=== PATIENT | female | born 1960 | race Caucasian/White ===

== ENCOUNTER 2016-07-20 11:33 | Emergency (ER) | payer MEDICAID ==
[~2016-07-20] VITALS: Wt 83.0 kg
[2016-07-20] MEDS ORDERED: KETOROLAC 30 MG INJ IM STA (12:59)
[2016-07-20] MEDS ORDERED: HYDROCODONE/APAP (5/325) TAB PO ONE (13:00)
--- NOTE | 2016-07-20 13:37 | RADRPT ---
PROCEDURE: XR Chest. CLINICAL INDICATION: chest pain TECHNIQUE: Single frontal view of the chest was obtained COMPARISON: None FINDINGS: The heart and mediastinum are within normal limits. The lungs are clear. There is no pleural effusion or pneumothorax. RPTAT: AA IMPRESSION: No acute disease. .Curry Morel MD, Date Time Electronically viewed and signed by .Curry Morel MD, on 07/20/2016 13:37 .S/
[2016-07-20] MEDS ORDERED: IBUP-1542 PO (14:12)
[2016-07-20] MEDS ORDERED: HYDR-906 PO (14:12)
--- NOTE | 2016-07-20 14:53 | RADRPT ---
PROCEDURE: Shoulder x-ray CLINICAL INDICATION: Pain TECHNIQUE: Left shoulder 3 views COMPARISON: None FINDINGS: 3 views of the left shoulder demonstrate no displaced fracture. The humeral head articulates anatom ically with the glenoid fossa. The acromioclavicular articulation is within normal limits. Bones a re normally mineralized. Soft tissues are unremarkable. IMPRESSION: No acute fracture dislocation No significant degenerate change RPTAT: HH .Dank Caballero MD, Date Time Electronically viewed and signed by .Dank Caballero MD, on 07/20/2016 14:53 .W/
[2016-07-20] MEDS ORDERED: ONDANSETRON 4 MG TAB PO ONE (15:00)
[2016-07-20] MEDS ORDERED: ONDA4TAB14 PO (15:16)
[2016-07-20 15:20] VITALS: RESP 18
--- NOTE | 2016-07-20 15:34 | ERD ---
ER Documentation Chief Complaint Date/Time DATE: 07/20/16 TIME: 15:18 Chief Complaint LEFT ARM PAIN X1 DAY, NO CP, NO SOB HPI Patient is a 54-year-old female with a history of diabetes complaining of left shoulder pain radiating to the left upper arm 1 day. Patient denies any trauma. Left shoulder pain appeared upon waking up yesterday morning. Denies paresthesia on the left upper extremity. Patient complains of decreased range of motion in the left shoulder. denies any chest pain, shortness of breath, nausea, fever. ROS All systems reviewed and are negative except as per history of present illness. Medications Home Meds Active Scripts Ondansetron (Ondansetron Odt) 4 Mg Tab.rapdis, 4 MG PO Q6H Y for NAUSEA AND/OR VOMITING, #20 TAB Prov:TRINA CHARLES 07/20/16 Hydrocodone/Acetaminophen (Tyro 5-325 Tablet) 1 Each Tablet, 1 TAB PO Q6H Y for PAIN, #7 TAB Prov:TRINA CHARLES 07/20/16 Ibuprofen* (Motrin*) 600 Mg Tab, 600 MG PO Q6H Y for PAIN AND OR ELEVATED TEMP, #30 TAB Prov:TRINA CHARLES 07/20/16 Allergies Allergies: Coded Allergies: No Known Allergy (Unverified , 07/20/16) PMhx/Soc History of Surgery: Yes (gallbladder; appendix; ) Anesthesia Reaction: No Hx Neurological Disorder: No Hx Respiratory Disorders: No Hx Cardiac Disorders: No Hx Psychiatric Problems: No Hx Miscellaneous Medical Probl: Yes (dm) Hx Alcohol Use: No Hx Substance Use: No Hx Tobacco Use: No Smoking Status: Never smoker Physical Exam Vitals Vital Signs Date Time Temp Pulse Resp B/P Pulse Ox O2 Delivery O2 Flow Rate FiO2 07/20/16 11:38 97.4 80 17 133/64 98 Physical Exam Physical Exam CONST: Well-developed, well-nourished, in no acute distress. HEENT: Atraumatic. Normal Conjunctiva. EOM intact. TM intact. External ear is normal. Clear oropharnyx without erythema. Moist mucous membranes. Supple. Full range of motion. No meningismus. No submandibular induration. RESP: Clear to auscultation bilaterally. No wheezing. CARDIO: Regular rate and rhythm, no murmurs ABD: Soft, non tender, non distended. Normal bowel sounds. No McBurney' s point tenderness. No guarding or rigidity. No peritoneal signs. SKIN: No petechiae or rashes BACK: No midline or flank tenderness EXT: Decreased range of motion on the left shoulder due to pain. No cyanosis or edema. Distal pulses equal and bilateral NEURO: Awake and alert, appropriate for age Results 24 hrs Current Medications Medications (Trade) Dose Ordered Sig/Cedrick Route PRN Reason Start Time Stop Time Status Last Admin Dose Admin Acetaminophen/ Hydrocodone Bitart (Tyro (5/325)) 1 tab ONCE ONCE PO 07/20/16 13:00 07/20/16 13:05 DC 07/20/16 13:38 Ketorolac Tromethamine (Toradol) 30 mg ONCE STAT IM 07/20/16 12:59 07/20/16 13:05 DC 07/20/16 13:38 Ondansetron HCl (Zofran Tab) 8 mg ONCE ONCE PO 07/20/16 15:00 07/20/16 15:01 DC PROCEDURE: Shoulder x-ray CLINICAL INDICATION: Pain TECHNIQUE: Left shoulder 3 views COMPARISON: None FINDINGS: 3 views of the left shoulder demonstrate no displaced fracture. The humeral head articulates anatomically with the glenoid fossa. The acromioclavicular articulation is within normal limits. Bones are normally mineralized. Soft tissues are unremarkable. IMPRESSION: No acute fracture dislocation No significant degenerate change RPTAT: HH .Dank Caballero MD, MD Date Time Electronically viewed and signed by .Dank Caballero MD, MD on 07/20/2016 14:53 PROCEDURE: XR Chest. CLINICAL INDICATION: chest pain TECHNIQUE: Single frontal view of the chest was obtained COMPARISON: None FINDINGS: The heart and mediastinum are within normal limits. The lungs are clear. There is no pleural effusion or pneumothorax. RPTAT: AA IMPRESSION: No acute disease. .Curry Morel MD, Date Time Electronically viewed and signed by .Curry Morel MD, MD on 07/20/2016 13: 37 Procedures/MDM EMERGENCY DEPARTMENT COURSE/MEDICAL DECISION MAKING This is a 55-year-old female who comes to the emergency room secondary to complaints of left shoulder and left upper arm pain. Patient denies any chest pain, palpitation, shortness of breath, nausea, fever. Vital signs are stable. The patient was given Toradol IM and Tyro p.o. in the department. Patient developed nausea afterwards so Zofran p.o. was given. On re-evaluation, the patient was feeling improved. Left shoulder x-ray and chest x-ray were interpreted by the radiologist and shows no fractures, infiltrates or pleural effusions My primary diagnosis is left shoulder pain. Differential diagnoses considered, included but not limited to cellulitis, bursitis, fracture, compartment syndrome. I have discussed the diagnostic findings with the patient and answered any questions or concerns. The patient was discharged for outpatient management with a prescription for Tyro, ibuprofen, and Zofran. The patient was advised to followup with their PMD in 1-2 days and to return to the Emergency Department if there are any new or worsening symptoms. The patient understood and agreed with the diagnosis, treatment and plan. The patient is stable for discharge at this time. Departure Diagnosis: Primary Impression: Left shoulder pain Chronicity: acute Qualified Code: M25.512 - Acute pain of left shoulder Additional Impression: Left arm pain Condition: Good Patient Instructions: Shoulder Pain (Uncertain Cause) [facility] Usted se doty hecho un examen mdico de control que le indica que no est en ozzy condicin que requiera tratamiento urgente en el Departamento de Emergencia. Un estudio ms profundo y el tratamiento de aguiar condicin pueden esperar sin ningn riesgo hasta que usted sea atendida/o en el consultorio de aguiar mdico o ozzy cl francoise. Es responsabilidad suya arreglar ozzy steven para el seguimiento del joon. MANEJO DE CONDICIONES NO URGENTES EN EL FUTURO 1) Si usted tiene un mdico de atencin primaria: Usted debera llamar a aguiar mdico de atencin primaria antes de venir al departamento de emergencia. Despus de las horas de consultorio, aguiar doctor o aguiar asociado/a est disponible por telfono. El mdico o enfermero de kathryn en el servicio telefnico puede asesorarle por alaina medio para atender el problema, o joon contrario se puede programar ozzy steven. 2) Si usted no tiene un mdico de atencin primaria: Llame al mdico o clnica de referencia que aparece abajo yolis las horas de consultorio para hacer ozzy steven para que le vean. CLINICAS: [facility] [phone] [facility] [phone] [facility] [phone] [address] [facility]. [place] [address] [phone] [facility] [place] [id number] [phone] [facility]. [phone] [address] [facility] () Usted se doty hecho un examen mdico de control que le indica que no est en ozzy condicin que requiera tratamiento urgente en el Departamento de Emergencia. Un estudio ms profundo y el tratamiento de aguiar condicin pueden esperar sin ningn riesgo hasta que usted sea atendida/o en el consultorio de aguiar mdico o ozzy cl francoise. Es responsabilidad suya arreglar ozzy steven para el seguimiento del joon. MANEJO DE CONDICIONES NO URGENTES EN EL FUTURO 1) Si usted tiene un mdico de atencin primaria: Usted debera llamar a aguiar mdico de atencin primaria antes de venir al departamento de emergencia. Despus de las horas de consultorio, aguiar doctor o aguiar asociado/a est disponible por telfono. El mdico o enfermero de kathryn en el servicio telefnico puede asesorarle por alaina medio para atender el problema, o joon contrario se puede programar ozzy steven. 2) Si usted no tiene un mdico de atencin primaria: Llame al mdico o condado institucions de referencia que aparece abajo yolis las horas de consultorio para hacer ozzy steven para que le vean. SI USTED NO PUEDE PAGAR PARA NATHANIEL UN MEDICO puede ir a: [facility] [address] [place] [address] [facility] [address] [place], [place] [id number] [place] [address] [address] [place] [address] [facility] [address] [place] [phone] Additional Instructions: Follow-up with your primary care physician within 1 week. Return to the emergency department immediately should you have any new or worsening symptoms, uncontrolled fevers, or other unexplained symptoms. Take all medications as directed. TRINA CHARLES Jul 20, 2016 15:28
== END 2016-07-20 15:21 | disposition home or self-care (01) ==
LOC: FTE 11:33
DX: M25.512 Pain in left shoulder (principal); M79.602 Pain in left arm; E11.9 Type 2 diabetes mellitus without complications
CPT/HCPCS: 71010; 73030; 96372; J1885; Z7502; Z7610